=== PATIENT | male | born 1965 | race African-American/Black ===

== ENCOUNTER 2023-10-22 02:17 | Emergency (ER) | payer OTHER, SELFPAY ==
--- NOTE | ~2023-10-22 | XR_ITS ---
EXAMINATION: XR elbow RT min 3V INDICATION: Right elbow pain TECHNIQUE: Four views of the right elbow are obtained. 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 No fracture is identified. There is no elbow joint effusion. The soft tissues are unremarkable. IMPRESSION: 1. Moderate osteoarthritis without acute osseous abnormality identified. Reviewed, dictated and finalized at location [facility]
[2023-10-22 02:14] VITALS: BP 165/105; PULSE 79; RESP 20; TEMP 36.7; O2SAT 100
--- NOTE | 2023-10-22 02:33 | ED.GENADULT ---
HPI - General Adult General Chief complaint: Extremity Problem,Nontraumatic Stated complaint: R arm pain Time Seen by Provider: 10/22/23 02:38 History of Present Illness HPI narrative: This is a 58-year-old male presenting with atraumatic right arm pain. Patient states that over the last week he has been having pain in his right elbow/ forearm and in his left hand. It comes and goes. It is worse when he moves his elbow. no swelling. No trauma. Patient denies fevers. patient has a history of gout. He has not taken anything for pain control. Related Data Allergies Allergy/AdvReac Type Severity Reaction Status Date / Time haloperidol Allergy Other Verified 10/22/23 02:26 Exam Narrative: APPEARANCE: No apparent distress. Head: atraumatic. EYES: EOMI, NOSE: Atraumatic NECK: Trachea midline RESPIRATORY: No increased rate of breathing CARDIOVASCULAR: RRR, ABDOMINAL: Non-distended MUSCULOSKELETAl: Focal exam of the right elbow revealed no obvious swelling or erythema. Pulses are +2 in the Radian ulnar distribution. Cap refill is less than 2 seconds. Radian ulnar and median function intact. NEURO: Alert. Moving 4/4 extremities SKIN:: Warm, dry. Normal color PSYCHIATRIC: Normal affect Course Vital Signs Vital signs: Vital Signs Temperature 98.0 F 10/22/23 02:14 Pulse Rate 79 10/22/23 02:14 Respiratory Rate 20 10/22/23 02:14 Blood Pressure 165/105 H 10/22/23 02:14 Pulse Oximetry 100 10/22/23 02:14 Oxygen Delivery Room Air 10/22/23 02:14 Temperature 98.0 F 10/22/23 02:14 Pulse Rate 79 10/22/23 02:14 Respiratory Rate 20 10/22/23 02:14 Blood Pressure 165/105 H 10/22/23 02:14 Pulse Oximetry 100 10/22/23 02:14 Oxygen Delivery Room Air 10/22/23 02:14 Medical Decision Making MDM Narrative Medical decision making narrative: -Course: 58-year-old male with history of arthritis presenting with atraumatic right elbow pain. Physical exam is unremarkable w/o swelling or warmth. Xray showed degenerative joint disease. patient has not been taking anything for pain control. He will be trialed on a course of Tylenol. Patient was given pain medication and discharged w/ primary care follow-up. -DDX includes but is not limited to: Arthritis, gout, peripheral neuropathy, regional pain syndrome, septic joint -Co-morbidities complicating care: hypertension diabetes COPD CHF -Social determinants of health: disabled due to medical comorbidities, lives in a hotel -Independent interpretation of studies: x-ray negative for fracture. -Interventions: toradol, tylenol, oxycodone -Shared decision making / Disposition: discharged -RX Tylenol Vital Signs Vital Signs: Vital Signs Temperature 98.0 F 10/22/23 02:14 Pulse Rate 79 10/22/23 02:14 Respiratory Rate 20 10/22/23 02:14 Blood Pressure 165/105 H 10/22/23 02:14 Pulse Oximetry 100 10/22/23 02:14 Oxygen Delivery Room Air 10/22/23 02:14 Temperature 98.0 F 10/22/23 02:14 Pulse Rate 79 10/22/23 02:14 Respiratory Rate 20 10/22/23 02:14 Blood Pressure 165/105 H 10/22/23 02:14 Pulse Oximetry 100 10/22/23 02:14 Oxygen Delivery Room Air 10/22/23 02:14 Discharge Plan Discharge Clinical Impression: Arthritis Patient Disposition: Home, Self-Care Condition: Stable Instructions: Antibiotic Form, Arthralgia (ED) Additional Instructions: Please take Tylenol for pain. Please follow-up with your primary care physician for further management. Return if you develop severe pain fevers or develop weakness in your hand. Prescriptions: New acetaminophen 500 mg capsule 1,000 mg PO Q6H PRN (Reason: pain) Qty: 90 0RF
[2023-10-22] MEDS: ACETAMINOPHEN 500 MG TABLET 1000 MG PO (02:38)
[2023-10-22] MEDS: oxyCODONE HCL (*CRX) 5 MG TAB IR PO (02:38)
[2023-10-22] MEDS: KETOROLAC 30 MG/ML VIAL (*BKC) 15 MG IM (02:38)
== END 2023-10-22 02:58 | disposition home or self-care (01) ==
LOC: ANHED 02:59
PROVIDERS: Emergency Provider Emergency Medicine
DX: M19.021 Primary osteoarthritis, right elbow (principal)
CPT/HCPCS: 73080; 96372; 99283; A9270; J1885